=== PATIENT | male | born 1950 | race Hispanic/Latino ===

== ENCOUNTER 2024-05-17 14:09 | Emergency (ER) | payer OTHER ==
[2024-05-17] MEDS ORDERED: TETRACAINE HCL 0.5% 4ML OPTH ONE (14:26)
[2024-05-17] MEDS ORDERED: CYCLOPENTOLATE 2% OPTH 2 ML ONE (14:26)
[2024-05-17] MEDS ORDERED: TOBRAMYCIN SULF 0.3% OPTH OINT ONE (14:26)
[2024-05-17] MEDS ORDERED: FLUORESCEIN SODIUM 1 MG/WRAP ONE (14:26)
--- NOTE | 2024-05-17 15:26 | EDPHYS ---
Physician Documentation [facility] Name: Monica Goldberg Age: 74 yrs Sex: Male : 1950 Arrival Date: 05/17/2024 Time: 14:09 Bed 18 Private MD: ED Physician Eric Christopher HPI: 05/17 15:08 This 74 yrs old Male presents to ER via Ambulatory with complaints of Eye gauri Injury. 15:08 The patient is experiencing pain, The patient sustained contusion, to the right eye. gauri Onset: The symptoms/episode began/occurred just prior to arrival. Duration: the symptoms are continuous. Aggravated by nothing. Alleviated by nothing. Associated signs and symptoms: Pertinent positives:. Patient wears glasses. Severity of symptoms: At their worst the symptoms were mild in the emergency department the symptoms are unchanged. The patient has not experienced similar symptoms in the past. Historical: - Allergies: 14:26 No Known Allergies; dd2 - PMHx: 14:26 tachycardia; dd2 - PSHx: 14:26 None; dd2 - Immunization history:: Adult Immunizations unknown. - Infectious Disease History:: Denies. - Social history:: Smoking status: Patient denies any tobacco usage or history of. - Family history:: not pertinent. ROS: 15:08 Constitutional: Negative for fever, chills, and weight loss, ENT: Negative for injury, gauri pain, and discharge, Neck: Negative for injury, pain, and swelling, Cardiovascular: Negative for chest pain, palpitations, and edema, Respiratory: Negative for shortness of breath, cough, wheezing, and pleuritic chest pain, Abdomen/GI: Negative for abdominal pain, nausea, vomiting, diarrhea, and constipation, Back: Negative for injury and pain, : Negative for injury, bleeding, discharge, and swelling, MS/Extremity: Negative for injury and deformity, Skin: Negative for injury, rash, and discoloration, Neuro: Negative for headache, weakness, numbness, tingling, and seizure, Psych: Negative for depression, anxiety, suicide ideation, homicidal ideation, and hallucinations, Allergy/Immunology: Negative for hives, rash, and allergies, Endocrine: Negative for neck swelling, polydipsia, polyuria, polyphagia, and marked weight changes, Hematologic/Lymphatic: Negative for swollen nodes, abnormal bleeding, and unusual bruising, 15:08 Eyes: Positive for injury or acute deformity, pain, of the outer aspect of conjuctiva of right eye and inner aspect of conjuctiva of right eye, Exam: 15:08 Constitutional: This is a well developed, well nourished patient who is awake, alert, gauri and in no acute distress. Head/Face: Normocephalic, atraumatic. ENT: Nares patent. No nasal discharge, no septal abnormalities noted. Tympanic membranes are normal and external auditory canals are clear. Oropharynx with no redness, swelling, or masses, exudates, or evidence of obstruction, uvula midline. Mucous membranes moist. Neck: Trachea midline, no thyromegaly or masses palpated, and no cervical lymphadenopathy. Supple, full range of motion without nuchal rigidity, or vertebral point tenderness. No Meningismus. Chest/axilla: Normal chest wall appearance and motion. Nontender with no deformity. No lesions are appreciated. Cardiovascular: Regular rate and rhythm with a normal S1 and S2. No gallops, murmurs, or rubs. Normal PMI, no JVD. No pulse deficits. Respiratory: Lungs have equal breath sounds bilaterally, clear to auscultation and percussion. No rales, rhonchi or wheezes noted. No increased work of breathing, no retractions or nasal flaring. Abdomen/GI: Soft, non-tender, with normal bowel sounds. No distension or tympany. No guarding or rebound. No evidence of tenderness throughout. Back: No spinal tenderness. No costovertebral tenderness. Full range of motion. Male : Normal genitalia with no discharge or lesions. Skin: Warm, dry with normal turgor. Normal color with no rashes, no lesions, and no evidence of cellulitis. MS/ Extremity: Pulses equal, no cyanosis. Neurovascular intact. Full, normal range of motion. Neuro: Awake and alert, GCS 15, oriented to person, place, time, and situation. Cranial nerves II-XII grossly intact. Motor strength 5/5 in all extremities. Sensory grossly intact. Cerebellar exam normal. Normal gait. Psych: Awake, alert, with orientation to person, place and time. Behavior, mood, and affect are within normal limits. 15:08 Eyes: Periorbital structures: appear normal, no acute changes, Pupils: no acute changes, normal size, equal, round, and reactive to light and accomodation, Extraocular movements: intact throughout, Conjunctiva: normal, subconjunctival hemorrhage(s), seen in the right eye, Corneas: a fluorescein strip employed to appreciate the findings, Sclera: Anterior chamber: normal, Lids and lashes: appear normal, funduscopic exam reveals no obvious abnormalities, Nystagmus: is not appreciated, Vital Signs: 14:23 BP 140 / 67; Pulse 88; Resp 15; Temp 98.3; Pulse Ox 98% ; Weight 71.67 kg; Height 5 ft. dd2 8 in. ; 15:37 BP 132 / 78; Pulse 87; Resp 18; Temp 97.8; Pulse Ox 99% on R/A; ph 14:23 Body Mass Index 24.02 (71.67 kg, 172.72 cm) dd2 Procedures: 15:17 Epistaxis treatment: eye stained no fb , no abrasion. gauri MDM: 14:15 Patient medically screened. gauri 15:12 Differential diagnosis: Corneal abrasion of Corneal ulcer of Foreign body in Acute gauri iritis of Acute glaucoma in Data reviewed: vital signs, nurses notes. Consideration of Admission/Observation Escalation of care including admission/observation considered. I considered the following discharge prescriptions or medication management in the emergency department Medications were administered in the Emergency Department. See MAR. Test considered but Not performed: Labs: no labs. Historians other than the Patient: Spouse/Significant Other: very well informed. Care significantly affected by the following chronic conditions: Hypertension, tachy, aspirin only. Counseling: I had a detailed discussion with the patient and/or guardian regarding the historical points, exam findings, and any diagnostic results supporting the discharge/admit diagnosis, the need for outpatient follow up, for definitive care, an opthalmologist, a family practitioner. 05/17 14:52 Order name: Eye Tray; Complete Time: 14:52 ph 05/17 14:52 Order name: Fluoresene Opth strip; Complete Time: 14:52 ph Administered Medications: 14:52 Drug: Tetracaine Ophthalmic Drops 0.5 % 1 drops Ophthalmic once Route: Ophthalmic; ph Site: right eye; 14:52 Drug: Tobrex Ophthalmic Ointment 0.3 % 1 application Ophthalmic in right eye once ph Route: Ophthalmic; Site: right eye; 15:08 Not Given (Duplicate Order): cyclopentolate drops (2%) 1 drops Ophthalmic once gauri Disposition Summary: 05/17/24 15:26 Discharge Ordered Notes: Location: Home gauri Problem: new gauri Symptoms: are unchanged gauri Condition: Stable gauri Diagnosis - Conjunctival hemorrhage, right eye gauri Followup: gauri - With: Private Physician - When: 2 - 3 days - Reason: Recheck today's complaints, Continuance of care, Re-evaluation by your physician Followup: gauri - With: Colby Carranza MD - When: Upon discharge from the Emergency Department - Reason: Recheck today's complaints, Re-evaluation by your physician Discharge Instructions: - Discharge Summary Sheet gauri - Subconjunctival Hemorrhage gauri Forms: - Medication Reconciliation Form gauri - Antibiotic Education gauri - Prescription Opioid Use gauri - Patient Portal Instructions gauri - Leadership Thank You Letter gauri Signatures: Eric Christopher MD MD cha Hall, Patricia, RN RN ph ANAMARIA GONSALES RN RN dd2
--- NOTE | 2024-05-17 15:26 | ER ---
Nurse's Notes [facility] Name: Monica Goldberg Age: 74 yrs Sex: Male : 1950 Arrival Date: 05/17/2024 Time: 14:09 Bed 18 Private MD: Diagnosis: Conjunctival hemorrhage, right eye Presentation: 05/17 14:20 Ebola Screen: No symptoms or risks identified at this time. Initial Sepsis Screen: Does ph the patient meet any 2 criteria? No. Patient's initial sepsis screen is negative. Does the patient have a suspected source of infection? No. Patient's initial sepsis screen is negative. Risk Assessment: Do you want to hurt yourself or someone else? Patient reports no desire to harm self or others. Onset of symptoms was May 17, 2024. 14:20 Method Of Arrival: Ambulatory ph 14:23 Chief complaint: Patient states: Pt states he was cleaning his yard and threw a branch dd2 down and the limb hit him in the eye. 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 Coronavirus screen: At this time, the client does not indicate any symptoms associated with coronavirus-19. Mechanism of Injury: No Mechanism of Injury. The patient denies any loss of vision. 14:23 Acuity: ALICIA 3 dd2 Triage Assessment: 14:26 General: Appears uncomfortable, Behavior is calm, cooperative. Pain: Denies pain. EENT: dd2 Eyes are tearing on right eye edema, redness to sclera. Reports blurred vision since now. Historical: - Allergies: 14:26 No Known Allergies; dd2 - PMHx: 14:26 tachycardia; dd2 - PSHx: 14:26 None; dd2 - Immunization history:: Adult Immunizations unknown. - Infectious Disease History:: Denies. - Social history:: Smoking status: Patient denies any tobacco usage or history of. - Family history:: not pertinent. Screenin:20 [facility] ED Fall Risk Assessment (Adult) History of falling in the last 3 months, ph including since admission No falls in past 3 months (0 pts) Confusion or Disorientation No (0 pts) Intoxicated or Sedated No (0 pts) Impaired Gait No (0 pts) Mobility Assist Device Used No (0 pt) Altered Elimination No (0 pt) Score/Fall Risk Level 0 - 2 = Low Risk Oriented to surroundings, Maintained a safe environment, Hourly rounding (assess needs \T\ fall precautionary measures) done, Used ambulatory aids as needed (educated on \T\ assisted with). Abuse screen: Denies threats or abuse. Denies injuries from another. Nutritional screening: No deficits noted. Tuberculosis screening: No symptoms or risk factors identified. Assessment: 14:48 General: Appears in no apparent distress. Behavior is calm, cooperative. Pain: ph Complains of pain in right eye. Neuro: Level of Consciousness is awake, alert, obeys commands, Oriented to person, place, time, situation. EENT: Sclera/Cornea are reddened in right eye w/ abrasion noted on right eye Reports slightly blurred vision in R eye. 15:34 Reassessment: Pt d/c w/ spouse, instructed to follow up w/ Dr Carranza after leaving ED. ph Vital Signs: 14:23 BP 140 / 67; Pulse 88; Resp 15; Temp 98.3; Pulse Ox 98% ; Weight 71.67 kg; Height 5 ft. dd2 8 in. ; 15:37 BP 132 / 78; Pulse 87; Resp 18; Temp 97.8; Pulse Ox 99% on R/A; ph 14:23 Body Mass Index 24.02 (71.67 kg, 172.72 cm) dd2 ED Course: 14:15 Patient arrived in ED. mr 14:15 Eric Christopher MD is Attending Physician. [facility] 14:20 Damaris Brown, RN is Primary Nurse. ph 14:20 Arm band placed on Patient placed in an exam room. ph 14:21 Patient has correct armband on for positive identification. Bed in low position. Call ph light in reach. Side rails up X 1. Pulse ox on. NIBP on. Door closed. Noise minimized. Warm blanket given. 14:26 Triage completed. dd2 14:50 Assist provider with eye exam of right eye. using fluorescein stain, Performed by Eric Christopher MD Patient tolerated well. Patient did not have IV access during this emergency room visit. 15:19 Colby Carranza MD is Referral Physician. gauri Administered Medications: 14:52 Drug: Tetracaine Ophthalmic Drops 0.5 % 1 drops Ophthalmic once Route: Ophthalmic; ph Site: right eye; 14:52 Drug: Tobrex Ophthalmic Ointment 0.3 % 1 application Ophthalmic in right eye once ph Route: Ophthalmic; Site: right eye; 15:08 Not Given (Duplicate Order): cyclopentolate drops (2%) 1 drops Ophthalmic once [facility] Medication: 15:37 VIS not applicable for this client. ph Outcome: 15:26 Discharge ordered by . [facility] 15:34 Discharged to home ambulatory, with significant other, ph 15:34 Condition: good 15:34 Discharge instructions given to patient, Instructed on discharge instructions, follow up and referral plans. Demonstrated understanding of instructions, follow-up care, 15:39 Patient left the ED. ph Signatures: Eric Christopher MD MD cha Rivera, Mary, Saroj Kyle mr Damaris Brown RN RN ph ANAMARIA GONSALES RN RN dd2 Corrections: (The following items were deleted from the chart) 14:54 14:52 Cyclopentolate Ophthalmic Drops (2%) 1 drops Ophthalmic in right eye ph ph 15:39 15:34 Reassessment: Pt d ph ph
[2024-05-17 15:51] VITALS: BP 132/78; TEMP 97.8; O2SAT 99
== END 2024-05-17 15:39 | disposition home or self-care (01) ==
LOC: ER 14:09
DX: H11.31 Conjunctival hemorrhage, right eye (principal)